=== PATIENT | female | born 2000 | race Two or more races ===

== ENCOUNTER 2021-09-09 02:06 | Inpatient (IN) | payer OTHER ==
[~2021-09-09] VITALS: Ht 160 cm; Wt 42.2 kg
--- NOTE | 2021-09-09 02:21 | NUR ---
SE RECIBE PTE ALERTA Y ORIENTADA X3, ACOMPANADA POR CALLAHAN MADRE. PTE VIENE REFERIDA POR DR. HOFFMANN, POR APARENTE RICH DE HERPES EN EL MICHAEL INCLUYENDO OJOS. SE RONNY S/V Y SE UBICA PTE EN CAMA 14.
--- NOTE | 2021-09-09 02:46 | NUR ---
EVALUA PTE. SE EDUCA SOBRE TX MEDICO EL CUAL REFIERE COMPRENDER. SE COLECTAN MUESTRAS DE LABORATORIO BAJO MEDIDAS ASEPTICAS. SE ADMINISTRAN MEDICAMENTOS FELICIANO ORDEN MEDICA. PTE MANEJADA POR .
--- NOTE | 2021-09-09 07:00 | NUR ---
SE RECIBE PTE ALERTA Y ORIENTADA EN CAMA BAJA CON BARANDAS ELEVADAS POR SEGURIDAD, SE OBSERVA CON BUEN PATRON RESPIRATORIO. RECIBIENDO IV FLUIDS PATENTA. AREA DE VENOPUNCION AVERY DE EDEMA Y ERITEMA. PTE EN AISLAMIENTO. SE MANTIENE BAJO OBSERVACION POR CAMBIO SIGNIFICATIVOS
--- NOTE | 2021-09-09 16:01 | NUR ---
PTE ALERTA Y ORIENTADA X3 EN CAMA CON BARABNDAS ELEVADAS. PTE CANALIZADA AREA AVERY DE EDEMA Y DE ENROJECIMIENTO. PTE EN ESPERA DE CONSULTA CON MEDICICNA INTERNA. PTE EN ESPERA CONSULTA CON SKIN TEAM EL CUAL ESTABA NOTIFICADA DESDE TURNO DEL 7@3 POR SUPERVISORA DE AREA.
[2021-09-11] MEDS ORDERED: TRIAMCINOLONE A15 G3 (10:39)
== END 2021-09-17 19:09 | disposition home or self-care (01) | DRG 602 ==
LOC: ER 02:06 → MEDJ 21:13
PROVIDERS: ADMIT Internal Medicine; ATTEND Internal Medicine
PROC: B24BZZZ Ultrasonography of Heart with Aorta (ICD-10-PCS; principal; 2021-09-11)
DX: L03.213 Periorbital cellulitis (principal); U07.1 COVID-19; R78.81 Bacteremia; B02.39 Other herpes zoster eye disease; B95.61 Methicillin susceptible Staphylococcus aureus infection as the cause of diseases classified elsewhere; B96.89 Other specified bacterial agents as the cause of diseases classified elsewhere; L20.89 Other atopic dermatitis; H01.8 Other specified inflammations of eyelid; R23.8 Other skin changes